=== PATIENT | female | born 1960 | race Caucasian/White ===

== ENCOUNTER 2020-10-24 07:05 | Day surgery (SDC) | payer OTHER ==
[~2020-10-24] VITALS: Ht 170 cm; Wt 63.7 kg
[~2020-10-24 07:05] MED LIST: CLON.5 PO; IBUP800 PO
--- NOTE | 2020-10-24 07:52 | NUR ---
Ambulatory in Day Surgery History, Chart, Medications and Allergies reviewed before start of procedure.Patient confirms NPO status and agrees with scheduled surgery. Patient states colon prep results clear.Lungs clear T/O to Auscultation. Patient States Post-Procedure ride home has been arranged.
--- NOTE | 2020-10-24 08:14 | NUR ---
10/24/20 0814 Esme Rdz History, Chart, Medications and Allergies reviewed before start of procedure.PATIENT DETERMINED TO BE ASA APPROPRIATE FOR PROPOFOL SEDATION PRIOR TO START OF PROCEDURE BY .MONITOR INTACT WITH CONTINUOUS PULSE OXIMETRY AND INTERMITTENT BP.3-LEAD EKG REVIEWED WITH PHYSICIAN PRIOR TO START OF PROCEDURE.O2 VIA N/C INTACT THROUGHOUT SEDATION/PROCEDURE.
--- NOTE | 2020-10-24 08:54 | NUR ---
Discharge instructions reviewed with patient. Patient verbalizes understanding. Copy given to patient to take home. TOLERATED PO FLUILDS. Discharged via wheelchair to private car for ride home
== END 2020-10-24 08:54 | disposition home or self-care (01) ==
LOC: ORSCMMR 07:05 → ORD 08:00 → ORSCMMR 08:00
PROVIDERS: Internal Medicine Gastroenterology
PROC: 0DBN8ZX Excision of Sigmoid Colon, Via Natural or Artificial Opening Endoscopic, Diagnostic (ICD-10-PCS; principal; 2020-10-24 08:00)
DX: Z12.11 Encounter for screening for malignant neoplasm of colon (principal); Z83.71 Family history of colonic polyps; D12.5 Benign neoplasm of sigmoid colon; K57.30 Diverticulosis of large intestine without perforation or abscess without bleeding; F41.9 Anxiety disorder, unspecified; J44.9 Chronic obstructive pulmonary disease, unspecified; F17.210 Nicotine dependence, cigarettes, uncomplicated; Z79.899 Other long term (current) drug therapy
CPT/HCPCS: 88305; J2704; J7120

== ENCOUNTER → 2022-09-04 | Outpatient (CLI) | payer OTHER | END | disposition home or self-care (01) | LOC: LAB 15:45 → LAB SHORT 15:45 → LAB FUT 09-05 12:30 → LAB SHORT 09-05 12:30 | DX: R30.0 Dysuria (principal) | CPT/HCPCS: 87086 ==

== ENCOUNTER → 2022-09-08 | Outpatient (CLI) | payer OTHER ==
[2022-09-08 19:29] LABS: BASOPHILS ABSOLUTE AUTO 0.03 K/mm3 (0.00-0.23); BASOPHILS PERCENT AUTO 0 % (0-2); EOSINOPHILS ABSOLUTE AUTO 0.26 K/mm3 (0.00-0.68); EOSINOPHILS PERCENT AUTO 4 % (0-6); Hematocrit 38.1 % (33.0-51.0); IMMATURE GRAN ABSOLUTE AUTO 0.02 K/mm3 (0.00-0.10); IMMATURE GRAN PERCENT AUTO 0 % (0-1); LYMPHOCYTES ABSOLUTE AUTO 1.46 K/mm3 (0.84-5.20); LYMPHOCYTES PERCENT AUTO 22 % (21-46); MONOCYTES ABSOLUTE AUTO 0.65 K/mm3 (0.16-1.47); MONOCYTES PERCENT AUTO 10 % (4-13); Mean Corpuscular HGB 32.8 pg (26.0-34.0); Mean Corpuscular HGB Conc 34.1 g/dL (31.5-36.5); Mean Corpuscular Volume 96 fL (80-100); Mean Platelet Volume 9.1 fL (9.1-12.4); NEUTROPHILS PERCENT AUTO 64 % (41-73); Platelet Count 345 K/mm3 (150-400); RDW Coefficient Variation 12.5 % (11.7-14.2); RDW Standard Deviation 44.8 fL (35.1-46.3); Red Blood Cell Count 3.96 M/mm3 (3.80-5.20); White Blood Cell Count 6.72 K/mm3 (4.00-11.30)
[2022-09-08 23:53] LABS: Albumin, Blood 3.8 g/dL (3.4-5.0); Albumin/Globulin Ratio 1.1 (0.8-1.8); Bilirubin, Total 0.5 mg/dL (0.1-1.0); Bun/Creatinine Ratio 13.7 (12.0-20.0); Calcium, Blood 9.3 mg/dL (8.5-10.1); Creatinine, Blood 0.66 mg/dL (0.40-1.00); Globulin, Blood 3.4 g/dL (2.2-4.0); Potassium, Blood 3.6 mmol/L (3.5-5.5); Total Protein, Blood 7.2 g/dL (6.4-8.2)
[2022-09-09 10:33] LABS: Candida species (DNA Probe) Negative (NEGATIVE); G. vaginalis (DNA Probe) Negative (NEGATIVE); T. vaginalis (DNA Probe) Negative (NEGATIVE)
[2022-09-12 08:10] LABS: F001-IGE EGG WHITE <0.10 kU/L (Class 0); F002-IGE MILK <0.10 kU/L (Class 0); F003-IGE CODFISH <0.10 kU/L (Class 0); F004-IGE WHEAT <0.10 kU/L (Class 0); F005-IGE RYE <0.10 kU/L (Class 0); F006-IGE BARLEY <0.10 kU/L (Class 0); F007-IGE OAT <0.10 kU/L (Class 0); F009-IGE RICE <0.10 kU/L (Class 0); F010-IGE SESAME SEED <0.10 kU/L (Class 0); F012-IGE GREEN PEA <0.10 kU/L (Class 0); F013-IGE PEANUT <0.10 kU/L (Class 0); F014-IGE SOYBEAN <0.10 kU/L (Class 0); F015-IGE WHITE BEAN <0.10 kU/L (Class 0); F017-IGE HAZELNUT (FILBERT) <0.10 kU/L (Class 0); F020-IGE ALMOND <0.10 kU/L (Class 0); F023-IGE CRAB <0.10 kU/L (Class 0); F024-IGE SHRIMP <0.10 kU/L (Class 0); F025-IGE TOMATO <0.10 kU/L (Class 0); F026-IGE PORK <0.10 kU/L (Class 0); F027-IGE BEEF <0.10 kU/L (Class 0); F031-IGE CARROT <0.10 kU/L (Class 0); F033-IGE ORANGE <0.10 kU/L (Class 0); F035-IGE POTATO, WHITE <0.10 kU/L (Class 0); F040-IGE TUNA <0.10 kU/L (Class 0); F041-IGE SALMON <0.10 kU/L (Class 0); F045-IGE YEAST <0.10 kU/L (Class 0); F047-IGE GARLIC <0.10 kU/L (Class 0); F083-IGE CHICKEN <0.10 kU/L (Class 0); F089-IGE MUSTARD <0.10 kU/L (Class 0); F093-IGE CHOCOLATE/CACAO <0.10 kU/L (Class 0); F202-IGE CASHEW NUT <0.10 kU/L (Class 0); F215-IGE LETTUCE <0.10 kU/L (Class 0); F256-IGE WALNUT <0.10 kU/L (Class 0); F263-IGE GREEN PEPPERCORN <0.10 kU/L (Class 0); F338-IGE SCALLOP <0.10 kU/L (Class 0)
== END | disposition home or self-care (01) ==
LOC: LAB 15:40 → LAB SHORT 15:40
PROVIDERS: Family Medicine
DX: E61.1 Iron deficiency (principal); N89.8 Other specified noninflammatory disorders of vagina; T78.1XXA Other adverse food reactions, not elsewhere classified, initial encounter; R20.2 Paresthesia of skin; R10.9 Unspecified abdominal pain
CPT/HCPCS: 80053; 82150; 82607; 82728; 82746; 83036; 83540; 83550; 83690; 85025; 86003; 87480; 87510; 87660

== ENCOUNTER → 2023-06-08 | Outpatient (CLI) | payer OTHER ==
[2023-06-08 19:52] LABS: Luteinizing Hormone 32.7 mIU/ml
[2023-06-08 20:06] LABS: Progesterone 0.99 ng/mL
[2023-06-10 22:44] LABS: ESTRADIOL BY IMMUNOASSAY <20 pg/mL
[2023-06-14 22:49] LABS: TESTOSTERONE,FREE MASS SPEC 1.4 pg/mL (0.6-3.8)
== END ==
LOC: LAB 18:24 → LAB SHORT 18:24
PROVIDERS: Family Medicine
DX: Z78.0 Asymptomatic menopausal state (principal); Z72.0 Tobacco use
CPT/HCPCS: 82670; 83001; 83002; 84144; 84270; 84402; 84403

== ENCOUNTER → 2023-10-01 | Outpatient (CLI) | payer OTHER ==
[2023-10-01 19:55] LABS: C-REACTIVE PROTEIN, EXT RANGE <0.290 mg/dL (0.000-0.300)
[2023-10-01 19:59] LABS: Alanine Aminotransfer (ALT/SGP 21 U/L (12-78); Albumin, Blood 3.9 g/dL (3.4-5.0); Albumin/Globulin Ratio 1.1 (0.8-1.8); Alk Phos 35 U/L (50-136); Anion Gap 8 mmol/L (3-11); Aspartate Aminotrans (AST/SGOT 17 U/L (12-37); Bilirubin, Direct <0.1 mg/dL (0.0-0.3); Blood Urea Nitrogen 12 mg/dL (8-24); CO2, Blood 26 mmol/L (21-32); Calcium, Blood 8.8 mg/dL (8.5-10.1); Chloride, Blood 108 mmol/L (98-108); Cholesterol 212 mg/dL (50-200); Free Thyroxine 0.78 ng/dL (0.70-1.60); Globulin, Blood 3.5 g/dL (2.2-4.0); Glucose, Blood 96 mg/dL (70-99); HDL Cholesterol 53 mg/dL (>39); LDL/HDL RATIO 2.7; Low Density Lipoprotein Chol 143 mg/dL (0-110); Potassium, Blood 3.4 mmol/L (3.5-5.5); Sodium, Blood 139 mmol/L (136-145); Total Protein, Blood 7.4 g/dL (6.4-8.2); Triglycerides 82 mg/dL (30-160); Very Low Density Lipoprot Chol 16 mg/dL (6-32)
[2023-10-01 20:03] LABS: Bilirubin, Indirect Unable to Calculate mg/dL (0.1-0.7); Bilirubin, Total 0.4 mg/dL (0.1-1.0); Bun/Creatinine Ratio 19.3 (12.0-20.0); Creatinine, Blood 0.62 mg/dL (0.40-1.00); Glomerular Filtration Rate 101 (60-)
[2023-10-04 05:12] LABS: ALDOLASE 3.9 U/L (1.2-7.6)
[2023-10-04 22:16] LABS: MYELOPEROXIDASE (MPO) AB,IGG 0 AU/mL (0-19); SERINE PROTEINASE 3 PR3 AB,IGG 0 AU/mL (0-19)
== END ==
LOC: LAB 18:24 → LAB SHORT 18:24
PROVIDERS: Family Medicine
DX: I77.6 Arteritis, unspecified (principal); M60.9 Myositis, unspecified; T46.6X5A Adverse effect of antihyperlipidemic and antiarteriosclerotic drugs, initial encounter
CPT/HCPCS: 80053; 80061; 82085; 82248; 82550; 83516; 84439; 84443; 85651; 86140

== ENCOUNTER → 2024-05-23 | Outpatient (CLI) | payer OTHER ==
[2024-05-23 19:25] LABS: BASOPHILS ABSOLUTE AUTO 0.05 K/mm3 (0.00-0.23); BASOPHILS PERCENT AUTO 1 % (0-2); EOSINOPHILS ABSOLUTE AUTO 0.13 K/mm3 (0.00-0.68); EOSINOPHILS PERCENT AUTO 2 % (0-6); Hematocrit 37.9 % (33.0-51.0); Hemoglobin 13.4 g/dL (11.5-16.0); IMMATURE GRAN ABSOLUTE AUTO 0.02 K/mm3 (0.00-0.10); IMMATURE GRAN PERCENT AUTO 0 % (0-1); LYMPHOCYTES ABSOLUTE AUTO 1.85 K/mm3 (0.84-5.20); LYMPHOCYTES PERCENT AUTO 23 % (21-46); MONOCYTES ABSOLUTE AUTO 0.51 K/mm3 (0.16-1.47); MONOCYTES PERCENT AUTO 6 % (4-13); Mean Corpuscular HGB 33.4 pg (26.0-34.0); Mean Corpuscular HGB Conc 35.4 g/dL (31.5-36.5); Mean Corpuscular Volume 95 fL (80-100); Mean Platelet Volume 8.9 fL (9.1-12.4); NEUTROPHILS ABSOLUTE AUTO 5.35 K/mm3 (1.96-9.15); NEUTROPHILS PERCENT AUTO 68 % (41-73); Platelet Count 337 K/mm3 (150-400); RDW Coefficient Variation 12.1 % (11.7-14.2); RDW Standard Deviation 42.3 fL (35.1-46.3); Red Blood Cell Count 4.01 M/mm3 (3.80-5.20); White Blood Cell Count 7.91 K/mm3 (4.00-11.30)
[2024-05-23 19:56] LABS: Alanine Aminotransfer (ALT/SGP 19 U/L (12-78); Albumin, Blood 3.9 g/dL (3.4-5.0); Albumin/Globulin Ratio 1.1 (0.8-1.8); Alk Phos 38 U/L (50-136); Anion Gap 10 mmol/L (3-11); Aspartate Aminotrans (AST/SGOT 18 U/L (12-37); Bilirubin, Total 0.2 mg/dL (0.1-1.0); Blood Urea Nitrogen 17 mg/dL (8-24); Bun/Creatinine Ratio 22.8 (12.0-20.0); CHOL/HDL RATIO 3.4; CO2, Blood 26 mmol/L (21-32); Calcium, Blood 8.7 mg/dL (8.5-10.1); Chloride, Blood 107 mmol/L (98-108); Cholesterol 206 mg/dL (50-200); Creatinine, Blood 0.75 mg/dL (0.40-1.00); Globulin, Blood 3.4 g/dL (2.2-4.0); Glomerular Filtration Rate 91 (60-); Glucose, Blood 100 mg/dL (70-99); HDL Cholesterol 60 mg/dL (>39); LDL/HDL RATIO 2.2; Low Density Lipoprotein Chol 130 mg/dL (0-110); Potassium, Blood 3.7 mmol/L (3.5-5.5); Sodium, Blood 139 mmol/L (136-145); Total Protein, Blood 7.3 g/dL (6.4-8.2); Triglycerides 78 mg/dL (30-160); Very Low Density Lipoprot Chol 15 mg/dL (6-32)
== END | disposition home or self-care (01) ==
LOC: LAB SHORT 18:27 → LAB 18:27
PROVIDERS: Nurse Practitioner Family
DX: E55.9 Vitamin D deficiency, unspecified (principal); M19.90 Unspecified osteoarthritis, unspecified site
CPT/HCPCS: 80053; 80061; 82306; 85025